=== PATIENT | female | born 1950 | race Caucasian/White ===

== ENCOUNTER → 2020-05-20 | Outpatient (CLI) | payer OTHER ==
[~2020-05-20] MED LIST: ADULT ASPIRIN R81 MG; COZAAR 25 MG TA25 M1; HYDROXYCHLOROQ200 M1; MELOXICAM15 MG; TOPROL XL25 MG PO; TYLENOL PM EX-1 EACH
== END ==
LOC: M.PC 09:30
PROVIDERS: ATTEND Physical Medicine & Rehabilitation
DX: M47.26 Other spondylosis with radiculopathy, lumbar region (principal); M51.16 Intervertebral disc disorders with radiculopathy, lumbar region; M48.061 Spinal stenosis, lumbar region without neurogenic claudication; M85.80 Other specified disorders of bone density and structure, unspecified site; M25.78 Osteophyte, vertebrae; M41.87 Other forms of scoliosis, lumbosacral region; I10 Essential (primary) hypertension; E78.00 Pure hypercholesterolemia, unspecified; J43.9 Emphysema, unspecified; Z96.653 Presence of artificial knee joint, bilateral; Z68.37 Body mass index [BMI] 37.0-37.9, adult; Z79.899 Other long term (current) drug therapy